=== PATIENT | male | born 1940 | race Caucasian/White ===

== ENCOUNTER 2020-05-08 08:02 | Outpatient (REF) | payer MEDICARE, SELFPAY ==
[2020-05-08 11:26] LABS: Estimated Average Glucose 120 mg/dL; Hemoglobin A1C 150.3343 umol/L; Hemoglobin A1c % 5.8 %
[2020-05-08 12:03] LABS: Alanine Aminotransferase 14 U/L (0-40); Albumin Level 4.1 g/dL (3.5-5.0); Alkaline Phosphatase 80 U/L (39-117); Anion Gap 14 (12-20); Aspartate Amino Transferase 19 U/L (5-37); Bilirubin Total 0.6 mg/dL (0.0-1.0); Blood Urea Nitrogen 19 mg/dL (9-16); Calcium 8.7 mg/dL (8.4-10.2); Carbon Dioxide 23 mmol/L (22-29); Chloride 107 mmol/L (96-108); Estimated Glomerular Filt Rate > 60; Glucose Fasting 111 mg/dL (60-99); Potassium 4.9 mmol/l (3.3-5.1); Sodium 139 mmol/L (135-145); Total Protein 6.5 g/dL (6.5-8.0)
== END 2020-05-08 08:03 | disposition home or self-care (01) ==
LOC: HO.MANLDS 08:02
PROVIDERS: PCP Internal Medicine; Visit Provider Internal Medicine
DX: R73.01 Impaired fasting glucose (principal); I10 Essential (primary) hypertension
CPT/HCPCS: 80053; 83036

== ENCOUNTER → 2020-06-28 08:30 | Outpatient (BNVA) | payer MEDICARE, SELFPAY | PROVIDERS: PCP Internal Medicine; Visit Provider Urology | DX: R97.20 Elevated prostate specific antigen [PSA] (principal) | CPT/HCPCS: 81002; 99212 ==

== ENCOUNTER → 2021-02-01 15:12 | Outpatient (BNVA) | payer MEDICARE, SELFPAY | PROVIDERS: PCP Internal Medicine; Visit Provider Urology | DX: N40.1 Benign prostatic hyperplasia with lower urinary tract symptoms (principal); N13.8 Other obstructive and reflux uropathy; R97.20 Elevated prostate specific antigen [PSA] | CPT/HCPCS: 51798; 99212 ==

== ENCOUNTER 2021-08-28 09:39 | Outpatient (AMB) | payer MEDICARE, SELFPAY ==
--- NOTE | 2021-08-28 11:39 | A.OFFVIS_ITS ---
Intake Intake Visit Reasons: PSA Intake Note: Patient is present for psa follow up Allergies No Known Allergies Allergy (Verified 07/01/23 14:34) HPI HPI Comments History of Present Illness Details Oniel is a very pleasant male. He is seen for the following urologic conditions - BPH - elevated PSA BPH Longstanding large prostate Minimal symptoms Highly variable PSA ranging from 12.8-19.2 Prior negative biopsy PSA 11/18 18.4, 08/20 14.6, Discussion has been had regarding risks for prostate cancer. Today we discussed use of finasteride in the situation LELE has greater than 100 cc prostate Will continue with interval surveillance of PSA PFS Medical History Elevated PSA Nocturia Microscopic hematuria Elevated PSA Surgical History History of surgery Family History Father No problems noted. Mother No problems noted. Social History Alcohol intake: never Patient Tobacco Use Status: Never used Tobacco Current occupational status: retired Review of Systems Const Denies chills and Denies fever(s) Card Reports no additional complaints and Denies syncope Resp Denies cough GI Denies abdominal pain and Denies heartburn Reports as per HPI and Denies change in libido Neuro Denies syncope Psych Denies change in libido Endo Denies change in libido Physical Exam Const General: cooperative, healthy appearing, comfortable and no acute distress Orientation/consciousness: patient oriented x3 HEENT Face and sinus: Yes normal facial exam Mouth: moist mucous membranes Neck Neck: Yes normal visual inspection, Yes full ROM and Yes trachea midline Chest Chest palpation & inspection: normal inspection of the chest Resp Effort & Inspection: normal respiratory effort, able to speak in complete sentences and no respiratory distress GI Inspection: Yes normal to inspection Back/Spine/Pelvis Cervical Spine: normal cervical lordosis Thoracic/Lumbar Spine: thoracic and lumbar spine normal to inspection Skin General skin exam: no rashes or lesions noted Neuro General: patient oriented x3, gait normal, tone normal and moves all extremities Extrem General: Yes normal to inspection and Yes capillary refill normal Assessment & Plan Assessment & Plan (1) BPH w urinary obs/LUTS: Code(s): N40.1 - Benign prostatic hyperplasia with lower urinary tract symptoms; N13.8 - Other obstructive and reflux uropathy (2) Elevated PSA: Code(s): R97.20 - Elevated prostate specific antigen [PSA] Plan 4 month follow-up with finasteride Orders: Orders Prostate Specific Antigen 4 Months N40.1 - Benign prostatic hyperplasia with lower urinary tract symptoms, N13.8 - Other obstructive and reflux uropathy Medications: New finasteride 5 mg PO DAILY 90 tabs 1RF 90 days N40.1 - Benign prostatic hyperplasia with lower urinary tract symptoms, N13.8 - Other obstructive and reflux uropathy, R33.9 - Retention of urine, unspecified Patient Instructions: Imaging studies, laboratory and physical exam results were discussed and reviewed in detail. No major barriers to patient understanding were identified. An opportunity to ask questions regarding the treatment plan was provided. All questions were answered. The patient expressed understanding and agreement with the above treatment plan. The patient is aware they should contact our office by phone for worsening of their current condition or the appearance of new urologic symptoms. Compliance is encouraged with any medications and followup testing that is ordered. It is a privilege to participate in the urologic care of your patient. If you have any questions or concerns regarding treatment for the above conditions, or other urologic issues, please do not hesitate to contact me. The office tel ephone contact is [phone]. This note is constructed using voice recognition software. While every effort has been made to ensure accuracy health insurance sales agent errors may have been included. Yours sincerely, Dr Ahsan Brewer MD, [facility] - Urology Providers of Expert, Compassionate Care for the Genitourinary System Telehealth Telehealth Location of provider rendering services: practice address Location of patient: address on file Patient Identification confirmed using: Name, : Yes Telehealth method: voice only Patient verbally consented to treatment: Yes Patient verbally consented to billing insurance company: Yes Patient informed of any privacy concerns related to visit: Yes Coding Level of Care Code Est Pt Level 3 (56600) Diagnoses BPH w urinary obs/LUTS N40.1; N13.8 Elevated PSA R97.20
== END 2021-08-28 14:06 | disposition home or self-care (01) ==
PROVIDERS: PCP Internal Medicine; Visit Provider Urology
DX: N40.1 Benign prostatic hyperplasia with lower urinary tract symptoms (principal); N13.8 Other obstructive and reflux uropathy; R97.20 Elevated prostate specific antigen [PSA]
CPT/HCPCS: 99499

== ENCOUNTER → 2021-08-28 09:39 | Outpatient (BNVA) | payer MEDICARE, SELFPAY | PROVIDERS: PCP Internal Medicine; Visit Provider Urology | DX: Z13.89 Encounter for screening for other disorder (principal) ==

== ENCOUNTER → 2021-12-26 08:26 | Outpatient (BNVA) | payer MEDICARE, SELFPAY | PROVIDERS: PCP Internal Medicine; Visit Provider Urology | DX: N40.1 Benign prostatic hyperplasia with lower urinary tract symptoms (principal); N13.8 Other obstructive and reflux uropathy; R97.20 Elevated prostate specific antigen [PSA] | CPT/HCPCS: Q3014 ==

== ENCOUNTER → 2022-07-01 14:28 | Outpatient (BNVA) | payer MEDICARE, SELFPAY | PROVIDERS: PCP Internal Medicine; Visit Provider Urology | DX: N40.1 Benign prostatic hyperplasia with lower urinary tract symptoms (principal); N13.8 Other obstructive and reflux uropathy; R97.20 Elevated prostate specific antigen [PSA] | CPT/HCPCS: 99212 ==

== ENCOUNTER 2022-12-30 09:31 | Outpatient (AMB) | payer MEDICARE, SELFPAY ==
--- NOTE | 2022-12-30 09:31 | MHC.OFFVIS ---
Intake Intake Visit Reasons: 6M PSA(SET) Intake Note: Patient is present for Telephone PSA Urology Med: Finasteride, (Patient request refill) Antibiotic Allergy:None Blood Thinner: Aspirin Pharmacy: [facility] Allergies No Known Allergies Allergy (Verified 12/30/22 09:32) Medication List - Last Reconciled 12/30/22 by Ahsan Brewer MD aspirin (Adult Low Dose Aspirin) 81 mg PO DAILY finasteride 5 mg PO DAILY 90 days losartan 25 mg PO DAILY metoprolol succinate ER 25 mg PO DAILY simvastatin 40 mg PO BEDTIME HPI HPI Comments History of Present Illness Details Oniel is a very pleasant male. He is a patient of Dr Mtz.He is seen for the following urologic conditions - BPH - elevated PSA Telemedicine Evaluation 15 min Consultation Doximity Segundo Video attempted PSA remains low Continued improvement in urination - recent UTI LELE normal 6 month follow-up PSA Lower urinary tract symptoms Longstanding large prostate Minimal symptoms Highly variable PSA ranging from 12.8-19.2 Prior negative biopsy PSA 11/18 18.4, 08/20 14.6, 11/20 10, 06/23 8.2 F 26%, 11/21 8.5 Discussion has been had regarding risks for prostate cancer. Current therapy finasteride LELE has greater than 100 cc prostate Will continue with interval surveillance of PSA PFS Medical History Elevated PSA Elevated PSA Microscopic hematuria Nocturia Surgical History History of surgery Family History Father No problems noted. Mother No problems noted. Social History Alcohol intake: never Patient Tobacco Use Status: Never used Tobacco Current occupational status: retired Review of Systems Const All systems reviewed & are unremarkable except as noted in HPI and below Reports no additional complaints Resp Reports no additional complaints GI Reports no additional complaints Reports as per HPI Musc Reports no additional complaints Physical Exam Telemedicine evaluation Appropriate responses Regular breathing rate and rhythm HEENT Head: Yes normal to inspection Ears: hearing grossly normal bilaterally Eyes General: appearance normal, both eyes and all related structures Neck Neck: Yes normal visual inspection Chest Chest palpation & inspection: normal inspection of the chest Resp Effort & Inspection: normal respiratory effort and able to speak in complete sentences Assessment & Plan Assessment & Plan (1) BPH w urinary obs/LUTS: Code(s): N40.1 - Benign prostatic hyperplasia with lower urinary tract symptoms; N13.8 - Other obstructive and reflux uropathy (2) Elevated PSA: Code(s): R97.20 - Elevated prostate specific antigen [PSA] Plan Six month follow-up PSA Orders: Orders PSA,Total (Free>4and<10) 6 Months R97.20 - Elevated prostate specific antigen [PSA] Medications: Refilled finasteride 5 mg PO DAILY 90 days 90 tabs 1RF N13.8 - Other obstructive and reflux uropathy, N40.1 - Benign prostatic hyperplasia with lower urinary tract symptoms, R33.9 - Retention of urine, unspecified finasteride 5 mg PO DAILY 90 tabs 1RF 90 days N13.8 - Other obstructive and reflux uropathy, N40.1 - Benign prostatic hyperplasia with lower urinary tract symptoms, R33.9 - Retention of urine, unspecified Patient Instructions: Imaging studies, laboratory and physical exam results were discussed and reviewed in detail. No major barriers to patient understanding were identified. An opportunity to ask questions regarding the treatment plan was provided. All questions were answered. The patient expressed understanding and agreement with the above treatment plan. The patient is aware they should contact our office by phone for worsening of their current condition or the appearance of new urologic symptoms. Compliance is encouraged with any medications and followup testing that is ordered. It is a privilege to participate in the urologic care of your patient. If you have any questions or concerns regarding treatment for the above conditions, or other urologic issues, please do not hesitate to contact me. The office telephone contact is [phone]. This note is constructed using voice recognition software. While every effort has been made to ensure accuracy critical care registered nurse errors may have been included. Yours sincerely, Dr Ahsan Brewer MD, [facility] - Urology Providers of Expert, Compassionate Care for the Genitourinary System Telehealth Telehealth Location of provider rendering services: practice address Location of patient: address on file Patient Identification confirmed using: Name, : Yes Telehealth method: video Patient verbally consented to treatment: Yes Patient verbally consented to billing insurance company: Yes Patient informed of any privacy concerns related to visit: Yes Coding Level of Care Code Tele Est Pt Level 3 (52848) Diagnoses BPH w urinary obs/LUTS N40.1; N13.8 Elevated PSA R97.20
== END 2022-12-30 10:50 | disposition home or self-care (01) ==
LOC: HO.HUSH 09:31
PROVIDERS: PCP Internal Medicine; Visit Provider Urology
DX: N40.1 Benign prostatic hyperplasia with lower urinary tract symptoms (principal); N13.8 Other obstructive and reflux uropathy; R97.20 Elevated prostate specific antigen [PSA]
CPT/HCPCS: 99213

== ENCOUNTER 2023-01-09 07:54 | Outpatient (REF) | payer MEDICARE, SELFPAY ==
[2023-01-09 14:59] LABS: Alanine Aminotransferase 17 U/L (0-40); Albumin Level 3.8 g/dL (3.5-5.0); Alkaline Phosphatase 86 U/L (39-117); Anion Gap 13 (12-20); Aspartate Amino Transferase 16 U/L (5-37); Bilirubin Total 0.5 mg/dL (0.0-1.0); Blood Urea Nitrogen 14 mg/dL (9-16); Calcium 9.7 mg/dL (8.4-10.2); Carbon Dioxide 25 mmol/L (22-29); Chloride 110 mmol/L (96-108); Cholesterol 112 mg/dL; Estimated Glomerular Filt Rate 48; Glucose Random 110 mg/dL (60-115); HDL Cholesterol 40 mg/dL; LDL Cholesterol Calculated 55 mg/dl; Potassium 4.8 mmol/L (3.3-5.1); Sodium 143 mmol/L (135-145); Total Protein 6.7 g/dL (6.5-8.0); Triglycerides 89 mg/dL
== END 2023-01-09 07:55 | disposition home or self-care (01) ==
LOC: HO.MANLDS 07:54
PROVIDERS: Visit Provider Internal Medicine
DX: I25.10 Atherosclerotic heart disease of native coronary artery without angina pectoris (principal); E78.00 Pure hypercholesterolemia, unspecified
CPT/HCPCS: 36415; 80053; 80061

== ENCOUNTER 2023-07-01 14:15 | Outpatient (AMB) | payer MEDICARE, SELFPAY ==
--- NOTE | 2023-07-01 14:29 | A.OFFVIS_ITS ---
Intake Intake Visit Reasons: 6m/PSA/PVR(set) Intake Note: Patient is Present for Follow Up PSA/PVR Urology Medication: Finasteride(Patient is no longer taking) Antibiotic Allergies: None Blood Thinners: Aspirin PVR: 232 Patient states that he has not been taking finasteride due to medication not being effective. Patient would like to discuss other medication options. Patient states he currently gets up 4 times during the night to urinate Allergies No Known Allergies Allergy (Verified 07/01/23 14:34) Medication List - Last Reconciled 07/01/23 by Ahsan Brewer MD aspirin (Adult Low Dose Aspirin) 81 mg PO DAILY finasteride 5 mg PO DAILY 90 days finasteride 5 mg PO DAILY 90 days losartan 25 mg PO DAILY metoprolol succinate ER 25 mg PO DAILY simvastatin 40 mg PO BEDTIME HPI HPI Comments History of Present Illness Details Oniel is a very pleasant male. He is a patient of Dr Mtz.He is seen for the following urologic conditions - BPH - elevated PSA Six-month follow-up PVR 230 Took himself off prostate medications May have regrowth of prostate Suggest restart finasteride and perform office cystoscopy Lower urinary tract symptoms Longstanding large prostate Minimal symptoms Highly variable PSA ranging from 12.8-19.2 Prior negative biopsy PSA 11/18 18.4, 08/20 14.6, 11/20 10, 06/23 8.2 F 26%, 11/21 8.5, 06/24 12 Prior prostate procedure Discussion has been had regarding risks for prostate cancer. Prior therapy finasteride LELE has greater than 100 cc prostate Will continue with interval surveillance of PSA PFSH Medical History Elevated PSA Nocturia Microscopic hematuria Elevated PSA Surgical History History of surgery Family History Father No problems noted. Mother No problems noted. Social History Alcohol intake: never Patient Tobacco Use Status: Never used Tobacco Current occupational status: retired Review of Systems Const Denies chills and Denies fever(s) Card Reports no additional complaints and Denies syncope Resp Denies cough GI Denies abdominal pain and Denies heartburn Reports as per HPI and Denies change in libido Neuro Denies syncope Psych Denies change in libido Endo Denies change in libido Physical Exam Const General: cooperative, healthy appearing, comfortable and no acute distress Orientation/consciousness: patient oriented x3 HEENT Face and sinus: Yes normal facial exam Mouth: moist mucous membranes Neck Neck: Yes normal visual inspection, Yes full ROM and Yes trachea midline Chest Chest palpation & inspection: normal inspection of the chest Resp Effort & Inspection: normal respiratory effort, able to speak in complete sentences and no respiratory distress GI Inspection: Yes normal to inspection Back/Spine/Pelvis Cervical Spine: normal cervical lordosis Thoracic/Lumbar Spine: thoracic and lumbar spine normal to inspection Skin General skin exam: no rashes or lesions noted Neuro General: patient oriented x3, gait normal, tone normal and moves all extremities Extrem General: Yes normal to inspection and Yes capillary refill normal Office Procedures Post Void Residual Post Residual Void Post Void Residual (PVR): [id number] Void Residual by ultrasound Assessment & Plan Assessment & Plan (1) BPH w urinary obs/LUTS: Code(s): N40.1 - Benign prostatic hyperplasia with lower urinary tract symptoms; N13.8 - Other obstructive and reflux uropathy (2) Elevated PSA: Code(s): R97.20 - Elevated prostate specific antigen [PSA] Plan Restart finasteride Office cystoscopy Orders: Orders Prostate Specific Antigen 06/26/23 R97.20 - Elevated prostate specific antigen [PSA] AMB Post Void Residual by ultrasound Today N13.8 - Other obstructive and reflux uropathy, N40.1 - Benign prostatic hyperplasia with lower urinary tract symptoms Medications: New finasteride 5 mg PO DAILY 90 tabs 1RF 90 days N13.8 - Other obstructive and reflux uropathy, N40.1 - Benign prostatic hyperplasia with lower urinary tract symptoms Patient Instructions: Imaging studies, laboratory and physical exam results were discussed and reviewed in detail. No major barriers to patient understanding were identified. An opportunity to ask questions regarding the treatment plan was provided. All questions were answered. The patient expressed understanding and agreement with the above treatment plan. The patient is aware they should contact our office by phone for worsening of their current condition or the appearance of new urologic symptoms. Compliance is encouraged with any medications and followup testing that is ordered. It is a privilege to participate in the urologic care of your patient. If you have any questions or concerns regarding treatment for the above conditions, or other urologic issues, please do not hesitate to contact me. The office telephone contact is [phone]. This note is constructed using voice recognition software. While every effort has been made to ensure accuracy conche operator errors may have been included. Yours sincerely, Dr Ahsan Brewer MD, [facility] - Urology Providers of Expert, Compassionate Care for the Genitourinary System Coding Level of Care Code Est Pt Level 4 (81848) Diagnoses BPH w urinary obs/LUTS N40.1; N13.8 Elevated PSA R97.20 CPT Codes Post Residual Void - PVR CPT Code: 04671-Hvhc Void Residual by ultrasound ([id number])
== END 2023-07-01 15:06 | disposition home or self-care (01) ==
PROVIDERS: PCP Internal Medicine; Visit Provider Urology
DX: N40.1 Benign prostatic hyperplasia with lower urinary tract symptoms (principal); N13.8 Other obstructive and reflux uropathy; R97.20 Elevated prostate specific antigen [PSA]
CPT/HCPCS: 99214

== ENCOUNTER → 2023-07-01 14:15 | Outpatient (BNVA) | payer MEDICARE, SELFPAY | PROVIDERS: PCP Internal Medicine; Visit Provider Urology | DX: R97.20 Elevated prostate specific antigen [PSA] (principal); N40.1 Benign prostatic hyperplasia with lower urinary tract symptoms; N13.8 Other obstructive and reflux uropathy | CPT/HCPCS: 51798; 99212 ==

== ENCOUNTER 2023-08-28 10:34 | Outpatient (AMB) | payer MEDICARE, SELFPAY ==
--- NOTE | 2023-08-28 10:41 | A.OFFVIS_ITS ---
Intake Intake Visit Reasons: cysto Intake Note: Patient presents today for a Cystoscopy Meds: Finasteride Allergies to Antibiotic: No Known Allergies Blood Thinner: Aspirin Urinalysis test clear for Cysto? Yes Post Void Residual: >484ml Disposable Uro-G Cystoscope Cannula: Lot: [id number] Exp: 03/26/2026 Instructional Supervisor Required: No Accompanied by: Self / Same As Patient Allergies No Known Allergies Allergy (Verified 08/28/23 11:45) Medication List - Last Reconciled 08/28/23 by Ahsan Brewer MD aspirin (Adult Low Dose Aspirin) 81 mg PO DAILY finasteride 5 mg PO DAILY 90 days levofloxacin 250 mg PO daily 5 days losartan 25 mg PO DAILY metoprolol succinate ER 25 mg PO DAILY simvastatin 40 mg PO BEDTIME HPI HPI Comments History of Present Illness Details Oniel is a very pleasant male. He is a patient of Dr Mtz.He is seen for the following urologic conditions - BPH - elevated PSA Six-month follow-up PVR continues to expand Will remain on prostate medications Treat for UTI today Start Bethanechol Lower urinary tract symptoms Longstanding large prostate Minimal symptoms Highly variable PSA ranging from 12.8-19.2 Prior negative biopsy PSA 11/18 18.4, 08/20 14.6, 11/20 10, 06/23 8.2 F 26%, 11/21 8.5, 06/24 12 Prior prostate procedure Discussion has been had regarding risks for prostate cancer. Prior therapy finasteride LELE has greater than 100 cc prostate Will continue with interval surveillance of PSA PFSH Medical History Elevated PSA Nocturia Microscopic hematuria Elevated PSA Surgical History History of surgery Family History Father No problems noted. Mother No problems noted. Social History Alcohol intake: never Patient Tobacco Use Status: Never used Tobacco Current occupational status: retired Review of Systems Const Denies chills and Denies fever(s) Card Reports no additional complaints and Denies syncope Resp Denies cough GI Denies abdominal pain and Denies heartburn Reports as per HPI and Denies change in libido Neuro Denies syncope Psych Denies change in libido Endo Denies change in libido Physical Exam Const General: cooperative, healthy appearing, comfortable and no acute distress Orientation/consciousness: patient oriented x3 HEENT Face and sinus: Yes normal facial exam Mouth: moist mucous membranes Neck Neck: Yes normal visual inspection, Yes full ROM and Yes trachea midline Chest Chest palpation & inspection: normal inspection of the chest Resp Effort & Inspection: normal respiratory effort, able to speak in complete sentences and no respiratory distress GI Inspection: Yes normal to inspection Back/Spine/Pelvis Cervical Spine: normal cervical lordosis Thoracic/Lumbar Spine: thoracic and lumbar spine normal to inspection Skin General skin exam: no rashes or lesions noted Neuro General: patient oriented x3, gait normal, tone normal and moves all extremities Extrem General: Yes normal to inspection and Yes capillary refill normal Office Procedures Post Void Residual Post Residual Void Post Void Residual (PVR): 484 [id number] Void Residual by ultrasound Results AMB Urinalysis, Automated UA Leukoctes 125 Vannesa/uL Last Edit by Dilia Kim CMA on 08/28/23 11:33 UA Nitrite Positive Last Edit by Dilia Kim CMA on 08/28/23 11: 33 UA Urobilinogen 0.2 mg/dL Last Edit by Dilia Kim CMA on 4 11:33 UA Protein 30 mg/dL Last Edit by Dilia Kim CMA on 08/28/23 11:3 3 UA pH 6.0 Last Edit by Dilia Kim CMA on 08/28/23 11:33 UA Blood 25 Jean Carlos/uL Last Edit by Dilia Kim CMA on 08/28/23 11:33 UA Specific Shelly 1.015 Last Edit by Dilia Kim CMA on 11:33 UA Ketone Negative Last Edit by Dilia Kim CMA on 08/28/23 11:3 3 UA Bilirubin 0 mg/dL Last Edit by Dilia Kim CMA on 08/28/23 11: 33 UA Glucose 0 mg/dL Last Edit by Dilia Kim CMA on 08/28/23 11:33 Results Reviewed Results Reviewed: Laboratory Last Values Urine pH (Auto) 6.0 08/28/23 11:32 Specific Shelly (Auto) 1.015 08/28/23 11:32 Urine Protein (Auto) 30 mg/dL 08/28/23 11:32 Glucose (UA)(Auto) 0 mg/dL 08/28/23 11:32 Urine Ketones (Auto) Negative 08/28/23 11:32 Urine Blood (Auto) 25 Jean Carlos/uL 08/28/23 11:32 Urine Nitrite (Auto) Positive 08/28/23 11:32 Urine Bilirubin (Auto) 0 mg/dL 08/28/23 11:32 Urine Urobilinogen (Auto) 0.2 mg/dL 08/28/23 11:32 Leukocyte Esterase (Auto) 125 Vannesa/uL 08/28/23 11:32 Assessment & Plan Assessment & Plan (1) UTI (urinary tract infection): Code(s): N39.0 - Urinary tract infection, site not specified (2) Complicated urinary tract infection: Code(s): N39.0 - Urinary tract infection, site not specified (3) Incomplete emptying of bladder due to benign prostatic hyperplasia: Code(s): N40.1 - Benign prostatic hyperplasia with lower urinary tract symptoms; R33.9 - Retention of urine, unspecified (4) BPH w urinary obs/LUTS: Code(s): N40.1 - Benign prostatic hyperplasia with lower urinary tract symptoms; N13.8 - Other obstructive and reflux uropathy Plan Start bethanechol Treat for UTI 2 month follow-up cysto Orders: Orders AMB Urinalysis Automated Today R33.9 - Retention of urine, unspecified AMB Post Void Residual by ultrasound Today R33.9 - Retention of urine, unspecified Urine Culture Today N39.0 - Urinary tract infection, site not specified Medications: New levofloxacin 250 mg PO daily 5 days 5 tabs 0RF N39.0 - Urinary tract infection, site not specified bethanechol chloride 50 mg PO BID 180 tabs 1RF 90 days N40.1 - Benign prostatic hyperplasia with lower urinary tract symptoms, R33.9 - Retention of urine, unspecified Patient Instructions: Imaging studies, laboratory and physical exam results were discussed and reviewed in detail. No major barriers to patient understanding were identified. An opportunity to ask questions regarding the treatment plan was provided. All questions were answered. The patient expressed understanding and agreement with the above treatment plan. The patient is aware they should contact our office by phone for worsening of their current condition or the appearance of new urologic symptoms. Compliance is encouraged with any medications and followup testing that is ordered. It is a privilege to participate in the urologic care of your patient. If you have any questions or concerns regarding treatment for the above conditions, or other urologic issues, please do not hesitate to contact me. The office telephone contact is [phone]. This note is constructed using voice recognition software. While every effort has been made to ensure accuracy prefabricated houses trimmer errors may have been included. Yours sincerely, Dr Ahsan Brewer MD, [facility] - Urology Providers of Expert, Compassionate Care for the Genitourinary System Coding Level of Care Code Est Pt Level 4 (10904) Diagnoses UTI (urinary tract infection) N39.0 Complicated urinary tract infection N39.0 Incomplete emptying of bladder due to benign prostatic hyperplasia N40.1; R33.9 BPH w urinary obs/LUTS N40.1; N13.8 CPT Codes Post Residual Void - PVR CPT Code: 53113-Bspc Void Residual by ultrasound ([id number])
== END 2023-08-28 12:06 | disposition home or self-care (01) ==
PROVIDERS: PCP Internal Medicine; Visit Provider Urology
DX: N39.0 Urinary tract infection, site not specified (principal); N40.1 Benign prostatic hyperplasia with lower urinary tract symptoms; R33.9 Retention of urine, unspecified; N13.8 Other obstructive and reflux uropathy
CPT/HCPCS: 99214

== ENCOUNTER 2023-08-28 10:34 | Outpatient (REF) | payer MEDICARE, SELFPAY | END 2023-08-28 10:35 | disposition home or self-care (01) | LOC: HO.LAB 10:34 | PROVIDERS: PCP Internal Medicine; Visit Provider Urology | DX: N39.0 Urinary tract infection, site not specified (principal); N40.1 Benign prostatic hyperplasia with lower urinary tract symptoms; R33.9 Retention of urine, unspecified; N13.8 Other obstructive and reflux uropathy | CPT/HCPCS: 51798; 81003; 87086; 87088; 87186; 99212 ==

== ENCOUNTER 2023-11-09 15:12 | Outpatient (REF) | payer MEDICARE, SELFPAY ==
[2023-11-09 17:56] LABS: Appearance Urine Turbid; Glucose Urine UA Negative (Negative); Leukocyte Esterase Urine Trace (Negative); Nitrite Urine Positive (Negative); Specific Gravity - Urine 1.025 (1.005-1.025); UMIC TRIGGER UACC YES; Urine Blood Large (3+) (Negative); Urine Ketones Negative (Negative); Urine Protein 300 (3+) mg/dL (Neg-Trace)
[2023-11-09 17:58] LABS: Color Urine RED
[2023-11-09 18:23] LABS: Bacteria Urine Trace (None Seen); Hyaline Casts Urine 0-2 /LPF (0-2); RBC Urine >20 /HPF (0-2); Squamous Epithelial Cell Urine 0-2 /HPF (0-2); UACC Culture Trigger YES; WBC Urine >50 /HPF (0-5)
== END 2023-11-09 15:13 | disposition home or self-care (01) ==
LOC: HO.MANLDS 15:12
PROVIDERS: Visit Provider Internal Medicine
DX: R30.9 Painful micturition, unspecified (principal)
CPT/HCPCS: 81001; 87086